=== PATIENT | female | born 1965 | race Caucasian/White ===

== ENCOUNTER 2022-07-28 21:04 | Emergency (ER) | payer BC ==
[2022-07-28 21:17] VITALS: BP 153/94; PULSE 91; RESP 18; TEMP 97.6; BMI 27.1
[2022-07-28] MEDS ORDERED: SODIUM CHLORIDE 0.9% 500 ML INFUS.BAG IV ONE (22:55)
[2022-07-28] MEDS ORDERED: KETOROLAC TROMETHAMINE 30 MG/1 ML VIAL IVPUSH ONE (22:55)
[2022-07-28] MEDS ORDERED: METOCLOPRAMIDE HCL INJECTION 10 MG/2 ML VIAL IVPUSH ONE (22:55)
== END 2022-07-28 23:34 | disposition home or self-care (01) ==
LOC: JERFT 21:04 → JER 21:04 → JERFT 23:34
DX: R51.9 Headache, unspecified (principal)
CPT/HCPCS: 99281-25